=== PATIENT | male | born 1980 ===

== ENCOUNTER 2022-08-11 07:22 | Day surgery (SDC) | payer OTHER ==
[~2022-08-11] VITALS: Ht 177.8 cm; Wt 81.6 kg
[~2022-08-11 07:22] MED LIST: ACID REDUCER20 M1 PO
== END 2022-08-11 18:40 | disposition home or self-care (01) ==
LOC: CIR.AMB 07:22
PROVIDERS: ATTEND Colon & Rectal Surgery
DX: K64.3 Fourth degree hemorrhoids (principal); Z20.822 Contact with and (suspected) exposure to COVID-19; E78.6 Lipoprotein deficiency